=== PATIENT | male | born 1975 | race African-American/Black ===

== ENCOUNTER 2018-04-08 00:47 | Emergency (ER) | payer MEDICAID ==
[~2018-04-08] VITALS: Ht 182.9 cm; Wt 104.0 kg
[2018-04-08] MEDS ORDERED: HYDROCODONE/ACETAMINOPHEN 5/325MG TABLET PO ONE (01:30)
[2018-04-08 01:46] LABS: BASOPHILS % 0.6 % (0.0-2.0); EOSINOPHILS % 0.2 % (0.0-5.0); HEMATOCRIT. 37.9 % (42.0-52.0); HEMOGLOBIN. 12.7 g/dL (14.0-18.0); LYMPHOCYTES % 17.1 % (20.0-50.0); MEAN CORPUSCULAR HEMOGLOBIN 30.9 pg (28.0-32.0); MEAN CORPUSCULAR VOLUME 92.5 fL (80.0-94.0); MEAN PLATELET VOLUME 8.2 fl (7.4-10.4); MONOCYTES % 6.7 % (2.0-8.0); NEUTROPHILS % 75.4 % (40.0-76.0); PLATELET 288 x1000/uL (130-400); RED CELL DISTRIBUTION WIDTH 13.7 % (11.6-14.6)
[2018-04-08 01:51] LABS: CHLORIDE 107 mEq/L (98-107)
[2018-04-08 01:52] LABS: PROTHROMBIN TIME 10.1 sec (9.1-11.1)
[2018-04-08] MEDS ORDERED: AMLODIPINE 5MG TABLET PO ONE (03:00)
[2018-04-08] MEDS ORDERED: KETOROLAC 15MG/ML VIAL IV ONE (03:00)
[2018-04-08] MEDS ORDERED: DIAZEPAM 5 MG TABLET PO ONE (03:00)
[2018-04-08 04:28] VITALS: BP 182/115
== END 2018-04-08 04:31 | disposition home or self-care (01) ==
LOC: ER 00:47
DX: M54.5 Low back pain (principal); I10 Essential (primary) hypertension; F17.200 Nicotine dependence, unspecified, uncomplicated; F12.10 Cannabis abuse, uncomplicated; D72.829 Elevated white blood cell count, unspecified; W01.0XXA Fall on same level from slipping, tripping and stumbling without subsequent striking against object, initial encounter; Y93.89 Activity, other specified; Y92.098 Other place in other non-institutional residence as the place of occurrence of the external cause
CPT/HCPCS: 36415; 70450; 72125; 72131; 80053; 85025; 85610; 96374; 99285; J1885